=== PATIENT | male | born 1965 | race Caucasian/White ===

== ENCOUNTER 2017-04-04 04:04 | Inpatient (IN) ==
[2017-04-04] MEDS ORDERED: Naloxone 0.4 MG/ML INJ IVP PRN (08:22)
--- NOTE | 2017-04-04 08:35 | Internal Med History&Physical ---
Date of Encounter: 04/08/17 Time of Encounter: 08:34 Assessment and Plan (1) Seizures Status: Acute 51/male Patient of Dr. Butch Francisco Known to have a seizure disorder and presented with worsening tonic-clonic kind of picture. Ultimately the patient had 3 episodes of seizures. Tongue biting was present. Patient was evaluated at Hospital in [place] and then transferred to this hospital for further evaluation. CT brain is of concern regarding in terms of her air-fluid levels. No history of any instrumentation as per family patient has swelling on the back in the inrascapular region. ( ?Lipoma) Assessment: Breakthrough seizure secondary to 1) Non compliance 2) Infective etiology can not be rule out. Plan: Nothing by mouth. Blood culture Intravenous antibiotics (vancomycin/Zosyn/ampicillin/acyclovir) Ativan for seizure Started Keppra, to begin with 1 g as a loading dose. IV fluids. MRI brain. EEG. fall precautions szd precaution. Neurology consult: I spoke personally with Dr. Cantu and discussed the plan. Plan of care discussed with the patient's brother at length. (2) Hypertension Status: Acute At this point we will hold all antihypertensive. Qualifiers: Hypertension type: essential hypertension Qualified Code(s): I10 - Essential (primary) hypertension (3) DVT prophylaxis Status: Acute SCD Internal Medicine - H&P: HPI Chief complaint: Persistent Seizures. Admitted From: Direct Admit Plans for Post Hospital Care: Home History of present illness: PCP: Dr Butch Francisco. Brief PMH: Known to have Seizure disorder ( on Depakote) and has scheduled follow up with Dr Sommers, HTN, HPI: patient have 3 episodes of seizure. First episode of seizure was around 6: 30 yesterday evening when he was driving with his nephew in a car. Patient was on the passenger side and the seizure lasted for more than 3 minutes. Patient' s nephew pulled over her car and was trying to help patient in terms of of the seizure. Patient's nephew took him home and it was noted that patient had another episodes of seizure. At that time it was decided to bring patient to the [facility] for further evaluation. Patient was brought to the [facility] for further evaluation where patient had another episode of seizure and this time basic workup was done which is as follows and patient was transferred to this hospital for further management. It seems that this was a hospital to hospital directly transfer for admission. I examined this patient this morning in the emergency room #29. Patient's nephew and his girlfriend was at bedside along with the patient's brother. Patient is heavily sedated and unable to give any history. Most of the history and all other information was gathered from the patient's family member and the records which were sent to this hospital from [facility] in [facility]. Following his workup from [facility]. WBC: 8.8 sodium: 107 BUN/ creatinine within normal limit. Hemoglobin: 13.1 potassium: 3.8 calcium: 8.7 Hematocrit: 39 chloride: 99 valproic acid: 36 ( 50 to 120) platelet count: 229 EKG: Normal sinus rhythm CT brain: No acute intracranial abnormality. Noted up multiple foci of air within the soft tissues in the right temporal region, about the image the right mandible and and lateral aspect of her right pterygoid plates. There is no history of any instrumentation in the recent past. Reason for acceptance of transfer: Recurrent seizures. Etiology/precipitant factor unknown at this time. Patient needs hospitalization to follow-up on the seizure activity and recurrence. Family history: Noncontributory Internal Medicine - H&P: Meds Atorvastatin Calcium [Lipitor] 20 mg PO HS 04/04/17 [History] Citalopram Hydrobromide [Citalopram HBr] 20 mg PO DAILY 04/04/17 [History] Lisinopril-HCTZ 20-12.5 [Prinzide 20-12.5] 1 tab PO DAILY 04/04/17 [History] Multivit-Min/FA/Lycopen/Lutein [Centrum Silver Men Tablet] 1 each PO DAILY 04/04 [History] Divalproex (12 HR) [Depakote (12 HR)] 500 mg PO BID #60 tablet. 04/06/17 [Rx] Oxycodone HCl 5 mg PO Q6H PRN #15 tablet 04/06/17 [Rx] levETIRAcetam [Keppra] 500 mg PO Q12HR #60 tablet 04/06/17 [Rx] 3 Allergy/AdvReac Type Severity Reaction Status Date / Time No Known Allergies Allergy Verified 04/04/17 06:20 ROS unobtainable: due to mental status All Systems PM: A 10-system review of systems was performed and is negative for pertinent findings except as documented above in the HPI. - Head Head exam: Present: atraumatic, normocephalic - Eye Eye exam: Present: PERRL, conjuntiva pink, sclera anicteric Pupils: Present: PERRL - Neck Neck exam general surgery: Present: supple, trachea midline. Absent: lymphadenopathy - Respiratory Respiratory exam: Present: CTAB. Absent: accessory muscle use, rales, rhonchi, wheezes - Cardiovascular Cardiovascular exam: Present: RRR, +S1, +S2. Absent: diastolic murmur, gallop, rubs, systolic murmur - GI/Abdominal GI/Abdominal exam: Present: normal bowel sounds, soft, no peritoneal signs. Absent: distended, tenderness - Extremities Exam Extremities exam: Present: warm, radial pulses palpable and symmetrical. Absent : calf tenderness, cyanotic, pedal edema - Neurological Exam Neurological exam: Present: CN II-XII intact, oriented X3, no focal deficits. Absent: pronater drift, facial droop, speech deficit - Skin Skin exam: Present: dry, intact Internal Med - H&P Results - Labs CBC & Chem 7: 04/05/17 05:28 04/05/17 05:28
[2017-04-04] MEDS ORDERED: levETIRAcetam 1,000 MG in 0.9 % Sodium Chloride 100 ML IVPB ONE (08:40)
[2017-04-04] MEDS ORDERED: *HR* LORazepam 2 MG/ML VIAL IVP PRN (08:41)
[2017-04-04] MEDS ORDERED: Piperacillin/Tazobactam 3.375 GM in Water for inj. (sterile) 20 ML 20 ML IVP ONE (10:00)
--- NOTE | 2017-04-04 10:11 | Neurology - Consult Note ---
<JoseSebas batista - Last Filed: 04/04/17 10:06> Date of Encounter: 04/04/17 Time of Encounter: 10:06 Assessment and Plan (1) Seizures Current Visit: Yes Status: Acute patient has been having frequent, regular seizures x2 weeks that have become more frequent. Also having frequent episodes of forgetfulness for about the past [address] head done at [facility]. exact etiology unclear at this time but likely multifactorial secondary to non compliance with medication with frequent forgetfulness Also must consider metabolic vs. infectious causes. Plan: B12, folate, MMA, RPR, MMA, TSH, thyroid cascade pending EEG pending MRI brain pending continue fall and seizure precautions, with PRN benzodiazepine. infection prophylaxis per primary team. We will later evaluate whether or not lumbar puncture is indicated. History of Present Illness Chief complaint: seizures HPI: Mr. Ridley is a 51 year old male with PMhx of seizure disorder, HTN. Patient interviewed at bedside, and his brother was present at bedside as well. Patient states that for about the past two weeks, he has been having one seizure every couple days. These episodes last a short amount of time, and then stop. He also states that his seizures have been becoming more frequent. Yesterday, he had two seizures that were prolonged before going to [facility], where he had another seizure. Patient has been having episodes of forgetfulness for about the past five years. He cannot remember simple things, such as watching a certain movie, and his short term memory has significantly declined. He also states that he does frequently forget to take his depakote at home, and this is due to his frequent forgetfulness that has been getting worse. He lives with his brother, and his brother usually reminds him to take his medication, but he still forgets. Patient is very lethargic upon interview. He reports a headache in the back part of his head. He denies nasuea, vomiting, diarrhea, fever, chest pain, shortness of breath. He does report chills. He reports low back pain and left shoulder pain. He denies any further complaints today. Medications and Allergies Atorvastatin Calcium [Lipitor] 20 mg PO HS 04/04/17 [History] Citalopram Hydrobromide [Citalopram HBr] 20 mg PO DAILY 04/04/17 [History] Divalproex (12 HR) [Depakote (12 HR)] 500 mg PO BID 04/04/17 [History] Lisinopril-HCTZ 20-12.5 [Prinzide 20-12.5] 1 tab PO DAILY 04/04/17 [History] Multivit-Min/FA/Lycopen/Lutein [Centrum Silver Men Tablet] 1 each PO DAILY 04/04 [History] 3 Allergy/AdvReac Type Severity Reaction Status Date / Time No Known Allergies Allergy Verified 04/04/17 06:20 All Systems: A 10-system review of systems was performed and is negative for pertinent findings except as documented above in the HPI. - Constitutional Constitutional ROS IM: as per HPI Physical Examination - Vital Signs Vital Signs: Initial Vital Signs Pulse Ox 99 04/04/17 08:37 - Exam Exam: alert and oriented x3, very lethargic, no acute distress. - Constitutional General appearance: comfortable - Neurologic Sensorimotor examination: intact, other (decreased sensation to left side of face) Motor examination - right side: 3/5: deltoids, biceps, triceps, wrist flexion, wrist extension, circular saw edge fuser, hip flexors Motor examination - left side: 3/5: deltoids, biceps, triceps, wrist flexion, wrist extension, hip flexors, circular saw edge fuser Detailed sensory examination: intact Reflexes: Brachioradialis: 1+, Patella: 1+, Achilles: 1+ Mental Status Examination: awake, alert, oriented to person, oriented to place, oriented to time, follows commands appropriately, answers questions appropriately, no aphasia, lethargic Cranial nerve examination: PERRL, EOMI, visual estrada intact Consult Discharge Plan - Plan Referrals: Butch Francisco MD [Primary Care Provider] - <Jeremie Cantu - Last Filed: 04/04/17 17:14> Date of Encounter: 04/04/17 Time of Encounter: 17:06 Assessment and Plan (1) Seizures Current Visit: Yes Status: Acute Very atypical case here. At this point it is not likely that this gentleman has a central nervous system infectious process. I would recommend discontinuing his antibiotics. I do not feel that lumbar puncture is indicated. MRI scan of the brain was normal, EEG was normal as well. I would not expect an normal EEG in an individual is been having 2 or 3 seizures a day for 2 weeks. His valproate level however was subtherapeutic. He gives a long convoluted explanation as to why he cannot take his valproate in the evenings as directed. He told me that he intends to see a neurologist at [facility] sometime in April. He has been loaded on levetiracetam. I would recommend discharging him on levetiracetam 500 mg twice a day. Discontinue the valproate. I would encourage him to follow up with the neurologist at [place]. We will do a follow-up visit in the morning. History of Present Illness HPI: Mr. Ridley is a 51 year old male who was seen and examined for neurologic consultation due to several recent episode of "seizures" and concern of a possible central nervous system infectious process. CT scan completed at [place] reported possible pneumocranium. However MRI scan of the brain completed here at [facility] was essentially normal. Patient at this time does not have a headache he is not febrile does not have been any nuchal rigidity. White count is normal. The likelihood of a [employer] infection is very low. Patient is also previously been seen by my associate Dr. Osborn back in 2011. Dr. Scott felt to likely that this gentleman who had been experiencing nonepileptic seizures. I did repeat his EEG and it was absolutely completely normal. I also find in his history PTSD. He gives a very convoluted history. He is tangential. He also seems to be a bit lethargic perhaps from the Ativan he received in the ED. The upper level was checked and was subtherapeutic at 36. He gives a long explanation as to why he is not able to take his medication as directed. All Systems: A 10-system review of systems was performed and is negative for pertinent findings except as documented above in the HPI. Review of Systems: 10 point review of systems is consistent with a history of present illness and is otherwise negative. Physical Examination - Vital Signs Vital Signs: Initial Vital Signs Pulse Ox 99 04/04/17 08:37 - Exam Exam: at this time patient is a bit somnolent, but remains awake throughout the duration of our encounter. He is not encephalopathic. - Neurologic Detailed motor examination: full strength in all major muscle groups Motor examination - right side: 5/5: deltoids, biceps, triceps, wrist flexion, wrist extension, circular saw edge fuser, hip flexors, tibialis Anterior, quadriceps, toe extension (EHL), plantarflexion Motor examination - left side: 07/29: deltoids, biceps, triceps, wrist flexion, wrist extension, hip flexors, circular saw edge fuser, quadriceps, tibialis Anterior, toe extension (EHL) Mental Status Examination: awake, alert, oriented to person, oriented to place, oriented to time, follows commands appropriately, answers questions appropriately, no agnosia, no aphasia, no aproxia, drowsy Cranial nerve examination: PERRL, EOMI, visual estrada intact, corneal reflexes brisk symmetrically, sensory to face intact, mastication intact, no facial asymmetry is present, no dysarthria, hearing is intact symmetrically, soft palate elevates bilaterally upon phonation, gag reflex intact, flexes SCM and trapezius muscles symmetrically with full power, tongue protrudes midline, no atrophy or facial fasiculations present Results - Laboratory Findings CBC and BMP: 04/04/17 10:32 04/04/17 10:32 Abnormal lab findings: Abnormal lab results Carbon Dioxide 31 mEq/L (23-29) H 04/04/17 10:32 Calcium 8.3 mg/dL (8.6-10.3) L 04/04/17 10:32 Serum Total Protein 6.3 g/dL (6.4-8.9) L 04/04/17 10:32
[2017-04-04 10:46] LABS: Basophils # 0.1 K/mcL (0.0-0.2); Basophils % 0.8 %; Eosinophils # 0.4 K/mcL (0.0-0.6); Eosinophils % 4.7 %; Hematocrit 42.3 % (37.5-50.1); Hemoglobin 13.7 g/dL (12.9-16.9); Immature Granulocytes % 0.1 % (0-4); Immature Platelets 2.6 % (1.1-6.1); Lymphocytes # 2.3 K/mcL (0.6-4.6); Lymphocytes % 28.7 %; Mean Corpuscular HGB Conc 32.4 g/dL (31.6-35.5); Mean Corpuscular Hemoglobin 31.2 pg (28.0-33.3); Mean Corpuscular Volume 96.4 fL (83.0-100.0); Mean Platelet Volume 9.7 fL (9.4-12.4); Monocytes # 0.6 K/mcL (0.0-1.3); Monocytes % 7.1 %; Neutrophils # 4.7 K/mcL (1.6-8.9); Platelet Count 230 K/mcL (140-400); Red Blood Count 4.39 M/mcL (4.19-5.50); Red Cell Distribution Width 13.1 % (11.5-14.5); Segmented Neutrophils % 58.6 %
[2017-04-04 10:53] LABS: INR 1.1; Prothrombin Time 11.3 Seconds (9.4-12.1)
[2017-04-04 10:56] LABS: Activated Partial Thrombo Time 33.1 Seconds (26.0-36.0)
[2017-04-04] MEDS: *HR* Morphine 2 MG/ML SYRINGE IVP PRN ×3 (11:10→21:22)
[2017-04-04] MEDS: 0.9 % Sodium Chloride 1,000 ML IVC SCH ×2 (12:15→23:20)
[2017-04-04] MEDS: Ampicillin 2 GM in 0.9 % Sodium Chloride Mini Bag 100 ML IVPB SCH ×2 (12:17→21:15)
[2017-04-04] MEDS: Vancomycin 1,500 MG in D5% in Water 250 ML IVPB SCH ×2 (12:18→23:00)
[2017-04-04] MEDS: Levofloxacin 750 MG/150 ML 750 MG/150 ML BAG IVPB SCH (12:24)
[2017-04-04 12:27] LABS: Alanine Aminotransferase 22 Units/L (7-52); Albumin 3.9 g/dL (3.5-5.7); Albumin/Globulin Ratio 1.6 (1.1-2.2); Alkaline Phosphatase 54 Units/L (34-104); Aspartate Amino Transferase 21 Units/L (13-39); BUN/Creatinine Ratio 17 (6-26); Bilirubin,Total 0.5 mg/dL (0.3-1.0); Blood Urea Nitrogen 17 mg/dL (6-20); Calcium 8.3 mg/dL (8.6-10.3); Carbon Dioxide 31 mEq/L (23-29); Chloride 106 mEq/L (98-107); Globulin 2.4 g/dL (2.4-3.5); Glucose 90 mg/dL (70-105); Osmolality,Calculated 293 (280-300); Potassium 3.9 mEq/L (3.5-5.1); Sodium 141 mEq/L (136-145); Total Protein 6.3 g/dL (6.4-8.9); eGFR For African Americans > 60 (> 60); eGFR For Non-African Americans > 60 (> 60)
[2017-04-04] MEDS: Acyclovir 750 MG in D5% in Water 250 ML IVPB SCH (16:48)
[2017-04-04] MEDS: Piperacillin/Tazobactam 3.375 GM/200 ML BAG IVPB SCH ×2 (16:49→21:15)
[2017-04-04] MEDS ORDERED: Vancomycin 1,000 MG in D5% in Water 250 ML IVPB SCH (18:00)
[2017-04-04] MEDS: Nicotine 21 MG PATCH.TD24 TD SCH (21:22)
[2017-04-05] MEDS: Ampicillin 2 GM in 0.9 % Sodium Chloride Mini Bag 100 ML IVPB SCH ×4 (00:44→17:15)
[2017-04-05] MEDS: Acyclovir 750 MG in D5% in Water 250 ML IVPB SCH ×3 (01:17→16:13)
[2017-04-05] MEDS: *HR* Morphine 2 MG/ML SYRINGE IVP PRN ×5 (01:22→20:36)
[2017-04-05] MEDS: Piperacillin/Tazobactam 3.375 GM/200 ML BAG IVPB SCH ×3 (02:22→18:37)
[2017-04-05 05:49] LABS: Basophils # 0.1 K/mcL (0.0-0.2); Basophils % 0.7 %; Eosinophils # 0.4 K/mcL (0.0-0.6); Eosinophils % 4.4 %; Hematocrit 37.1 % (37.5-50.1); Hemoglobin 12.6 g/dL (12.9-16.9); Immature Granulocytes % 0.5 % (0-4); Lymphocytes # 1.8 K/mcL (0.6-4.6); Lymphocytes % 20.5 %; Mean Corpuscular Hemoglobin 31.5 pg (28.0-33.3); Mean Corpuscular Volume 92.8 fL (83.0-100.0); Mean Platelet Volume 9.6 fL (9.4-12.4); Monocytes # 0.7 K/mcL (0.0-1.3); Monocytes % 7.6 %; Neutrophils # 5.8 K/mcL (1.6-8.9); Platelet Count 213 K/mcL (140-400); Red Cell Distribution Width 12.7 % (11.5-14.5); Segmented Neutrophils % 66.3 %
[2017-04-05 05:58] LABS: INR 1.1; Prothrombin Time 12.1 Seconds (9.4-12.1)
[2017-04-05 06:01] LABS: Activated Partial Thrombo Time 32.8 Seconds (26.0-36.0)
[2017-04-05 06:06] LABS: Alanine Aminotransferase 20 Units/L (7-52); Albumin 3.4 g/dL (3.5-5.7); Albumin/Globulin Ratio 1.4 (1.1-2.2); Alkaline Phosphatase 50 Units/L (34-104); Aspartate Amino Transferase 19 Units/L (13-39); BUN/Creatinine Ratio 14 (6-26); Bilirubin,Total 0.4 mg/dL (0.3-1.0); Blood Urea Nitrogen 14 mg/dL (6-20); Calcium 8.6 mg/dL (8.6-10.3); Carbon Dioxide 33 mEq/L (23-29); Chloride 107 mEq/L (98-107); Chol/HDL Ratio 3.6 (0-4.9); Cholesterol 123 mg/dL (< 200); Globulin 2.4 g/dL (2.4-3.5); Glucose 90 mg/dL (70-105); HDL Cholesterol 34 mg/dL (40-59); LDL Cholesterol,Calculated 55 mg/dL (0-99); Magnesium 1.9 mg/dL (1.6-2.6); Osmolality,Calculated 292 (280-300); Phosphorous 3.3 mg/dL (2.7-4.5); Potassium 3.9 mEq/L (3.5-5.1); Sodium 141 mEq/L (136-145); Total Protein 5.8 g/dL (6.4-8.9); Triglycerides 170 mg/dL (< 150); eGFR For African Americans > 60 (> 60); eGFR For Non-African Americans > 60 (> 60)
--- NOTE | 2017-04-05 07:28 | EEG/EMG/Oth Biometrics Report ---
EEG Procedure Report Date of procedure: 04/05/17 EEG Procedure: Routine EEG Procedure Note: This is a report of a 21 channel bipolar and referential montage EEG. The posterior dominant rhythm consists of 8 Hz moderate voltage alpha frequency. This rhythm attenuates symmetrically with eye opening. Hyperventilation was not performed during the recording. The emergency technician during the recording. Document what was a thought to have been seizure activity. However there was no change in the baseline EEG other than increased myogenic artifact. There was no epileptiform activity identified during the event which lasted about 9 seconds. There was no postictal slowing associated. Periods of drowsiness and stage II sleep identified as reference by dropout of the posterior dominant rhythm and emergence of vertex activity, K complexes, and sleep spindles. Photic stimulation is performed and does not produce a driving response. The EKG reveals normal sinus rhythm at 60 bpm. Impressions: This EEG recording is within normal limits. There is no evidence of epileptiform activity identified during the study. Comment: An event occurred during the recording at the emergency technician documented as "seizure". However there was no epileptiform activity identified during this event. No pre-or postictal slowing identified. This is consistent with a psychogenic nonepileptic seizure. Please correlate clinically.
[2017-04-05] MEDS: Nicotine 21 MG PATCH.TD24 TD SCH (08:03)
--- NOTE | 2017-04-05 08:23 | Neurology Progress Note ---
Date of Encounter: 04/05/17 Time of Encounter: 08:21 Assessment and Plan (1) Seizures Current Visit: Yes Status: Acute (2) Psychogenic nonepileptic seizure Current Visit: Yes Status: Acute As mentioned in my note I believe that we are dealing with psychogenic nonepileptic seizures here. The EEG was normal. There was no evidence of epileptiform activity identified during the study. However the conservation technician witnesses an event that she noted a seizure. I would recommend still discharging this patient on levetiracetam 500 mg twice a day. Some individuals with psychogenic seizures experience complex partial seizures as well. I am recommending simply follow up with his appointment at [place] for neurological assessment and summary been scheduled. You may discharge him at your discretion. Subjective Interval history: Chart was reviewed, patient was seen and examined. No further seizures identified overnight. I did review the EEG which was essentially normal. He did experience an event which the conservation technician reported as "seizure" however there was no change in the cortical rhythms suggestive of seizure. No epileptiform activity was identified. An increase in myogenic artifact however was present. This is suggestive of a nonepileptic event. Otherwise he also admits that he has been under a great deal of stress lately because of his mother's failing health. She has recently been placed in hospice care. He denies any headache this morning. Denies any new neurologic deficits. Objective - Constitutional Vitals: Temp Pulse Resp BP Pulse Ox 97.8 F 72 18 121/71 99 04/05/17 07:08 04/05/17 07:08 04/05/17 07:08 04/05/17 07:08 04/05/17 07:08 - Neurological Exam Sensorimotor examination: Present: intact, other (decreased sensation to left side of face) Motor Examination: Present: full strength in all major muscle groups Motor examination - right side: 5/5: deltoids, biceps, triceps, wrist flexion, wrist extension, extractor and wringer operator, hip flexors, tibialis Anterior, quadriceps, toe extension (EHL), plantarflexion Motor examination - left side: 5/5: deltoids, biceps, triceps, wrist flexion, wrist extension, hip flexors, extractor and wringer operator, quadriceps, tibialis Anterior, toe extension (EHL) Sensation intact: Present: intact Mental Status Examination: Present: awake, alert, oriented to person, oriented to place, oriented to time, follows commands appropriately, answers questions appropriately, no agnosia, no aphasia, no aproxia Cranial nerve examination: Present: PERRL, EOMI, visual estrada intact, corneal reflexes brisk symmetrically, sensory to face intact, mastication intact, no facial asymmetry is present, no dysarthria, hearing is intact symmetrically, soft palate elevates bilaterally upon phonation, gag reflex intact, flexes SCM and trapezius muscles symmetrically with full power, tongue protrudes midline, no atrophy or facial fasiculations present Cerebellar examination: Present: no dysmetria, performs finger to nose and heel to elias symmetrically without ataxia, no gait ataxia Results - Laboratory Findings CBC and BMP: 04/05/17 05:28 04/05/17 05:28 Abnormal lab findings: Abnormal lab results RBC 4.00 M/mcL (4.19-5.50) L 04/05/17 05:28 Hgb 12.6 g/dL (12.9-16.9) L 04/05/17 05:28 Hct 37.1 % (37.5-50.1) L 04/05/17 05:28 Carbon Dioxide 33 mEq/L (23-29) H 04/05/17 05:28 B-Natriuretic Peptide 102 pg/mL (Less than 100) H 04/05/17 05:28 Serum Total Protein 5.8 g/dL (6.4-8.9) L 04/05/17 05:28 Albumin 3.4 g/dL (3.5-5.7) L 04/05/17 05:28 Triglycerides 170 mg/dL (< 150) H 04/05/17 05:28 VLDL Cholesterol, Calc 34 mg/dL (< 31) H 04/05/17 05:28 HDL Cholesterol 34 mg/dL (40-59) L 04/05/17 05:28 Consult Discharge Plan - Plan Referrals: Butch Francisco MD [Primary Care Provider] -
[2017-04-05] MEDS ORDERED: Aminoglycoside Consult 1 EACH MC ONE (08:34)
[2017-04-05] MEDS: Levofloxacin 750 MG/150 ML 750 MG/150 ML BAG IVPB SCH (09:12)
[2017-04-05] MEDS: Vancomycin 1,500 MG in D5% in Water 250 ML IVPB SCH (11:52)
--- NOTE | 2017-04-05 18:10 | Internal Med Progress Note ---
Date of Encounter: 04/05/17 Time of Encounter: 18:08 - Assessment and plan (1) Psychogenic nonepileptic seizure Current Visit: Yes Status: Acute Assessment and plan: EEG is normal, MRI of the brain without abnormalities Neurology recommending to continue Keppra, as some individuals with psychogenic seizures experience complex partial seizures as well. Seizure precautions Discontinue antibiotics, no signs of meningitis CT brain: No acute intracranial abnormality. Noted up multiple foci of air within the soft tissues in the right temporal region, about the image the right mandible and and lateral aspect of her right pterygoid plates. There is no history of any instrumentation in the recent past. (2) Hyperlipidemia Current Visit: Yes Status: Acute Assessment and plan: Continue atorvastatin Qualifiers: Hyperlipidemia type: pure hypercholesterolemia Qualified Code(s): E78.00 - Pure hypercholesterolemia, unspecified; E78.0 - Pure hypercholesterolemia (3) Seizures Current Visit: Yes Status: Acute Assessment and plan: Continue Depakote (4) Hypertension Current Visit: Yes Status: Acute Assessment and plan: Continue lisinopril and hydrochlorothiazide Qualifiers: Hypertension type: essential hypertension Qualified Code(s): I10 - Essential (primary) hypertension (5) Sebaceous cyst Current Visit: Yes Status: Acute Assessment and plan: Can follow up as an outpatient, might require draining/excision - Subjective Interval history: Denies any photophobia, no neck rigidity, no further seizure episodes, complains of pain on the right upper back from a possible sebaceous cyst, no chest pain or shortness of breath, no dysuria - Constitutional Vitals: Temp Pulse Resp BP Pulse Ox 98.0 F 57 18 131/82 94 04/05/17 15:09 04/05/17 15:09 04/05/17 15:09 04/05/17 15:04/05/17 15:09 General appearance: Present: A&O X 3 Exam: No neck rigidity - Head Head exam: Present: atraumatic, normocephalic - Eye Eye exam: Present: PERRL, conjuntiva pink, sclera anicteric Pupils: Present: PERRL - Neck Neck exam general surgery: Present: supple, trachea midline. Absent: lymphadenopathy - Respiratory Respiratory exam: Present: CTAB. Absent: accessory muscle use, rales, rhonchi, wheezes - Cardiovascular Cardiovascular exam: Present: RRR, +S1, +S2. Absent: diastolic murmur, gallop, rubs, systolic murmur Additional comments: right upper back from a possible sebaceous cyst - GI/Abdominal GI/Abdominal exam: Present: normal bowel sounds, soft, no peritoneal signs. Absent: distended, tenderness - Extremities Exam Extremities exam: Present: warm, radial pulses palpable and symmetrical. Absent : calf tenderness, cyanotic, pedal edema - Neurological Exam Neurological exam: Present: CN II-XII intact, oriented X3, no focal deficits. Absent: pronater drift, facial droop, speech deficit - Skin Skin exam: Present: dry, intact Internal Medicine: Result - Labs CBC & Chem 7: 04/05/17 05:28 04/05/17 05:28 Labs: Short CBC 04/05/17 Range/Units 05:28 WBC 8.7 (4.3-11.1) K/mcL Hgb 12.6 L (12.9-16.9) g/dL Hct 37.1 L (37.5-50.1) % Plt Count 213 (140-400) K/mcL Neutrophils # 5.8 (1.6-8.9) K/mcL BMP 04/05/17 05:28 Sodium 141 Potassium 3.9 Chloride 107 Carbon Dioxide 33 H BUN 14 Creatinine 0.99 Glucose 90 Calcium 8.6 Cardiac Enzymes 04/04/17 Range/Units 20:29 Troponin I < 0.03 (< 0.04) ng/mL Liver Function 04/05/17 Range/Units 05:28 Total Bilirubin 0.4 (0.3-1.0) mg/dL AST 19 (13-39) Units/L ALT 20 (7-52) Units/L Alkaline Phosphatase 50 (34-104) Units/L Albumin 3.4 L (3.5-5.7) g/dL - ABG Interpretation ABG results: PT/INR, D-dimer PT 12.1 Seconds (9.4-12.1) 04/05/17 05:28 - Impressions Impressions Brain MRI 04/04/17 08:28 IMPRESSION: Motion degraded study. Unremarkable MRI of brain. No acute intracranial abnormality. D/ / 04/04/2017 12:42:16 Leon Riojas MD / [email or web address] Interpreting Provider: Leon Riojas MD Consult Discharge Plan - Plan Referrals: Butch Francisco MD [Primary Care Provider] -
[2017-04-05] MEDS: levETIRAcetam 250 MG TABLET PO SCH (18:42)
[2017-04-05] MEDS: Divalproex (12 HR) 500 MG TABLET PO SCH (20:36)
[2017-04-06] MEDS: *HR* Morphine 2 MG/ML SYRINGE IVP PRN (04:18)
[2017-04-06] MEDS: levETIRAcetam 250 MG TABLET PO SCH (05:13)
[2017-04-06 07:04] VITALS: BP 116/75
--- NOTE | 2017-04-06 08:11 | Discharge Summary ---
Date of Encounter: 04/06/17 Time of Encounter: 08:08 - Discharge Diagnosis (1) Psychogenic nonepileptic seizure Priority: Primary Status: Acute (2) Hyperlipidemia Priority: Secondary Status: Acute Qualifiers: Hyperlipidemia type: pure hypercholesterolemia Qualified Code(s): E78.00 - Pure hypercholesterolemia, unspecified; E78.0 - Pure hypercholesterolemia (3) Seizures Priority: Secondary Status: Acute (4) Hypertension Priority: Secondary Status: Acute Qualifiers: Hypertension type: essential hypertension Qualified Code(s): I10 - Essential (primary) hypertension (5) Sebaceous cyst Priority: Secondary Status: Acute Comments: Can follow up as an outpatient, might require draining/excision - Discharge Medications Prescriptions: levETIRAcetam [Keppra] 500 mg PO Q12HR #60 tablet Divalproex (12 HR) [Depakote (12 HR)] 500 mg PO BID #60 tablet. Oxycodone HCl 5 mg PO Q6H PRN #15 tablet PRN Reason: pain Home Medications: Atorvastatin Calcium [Lipitor] 20 mg PO HS 04/04/17 [History] Citalopram Hydrobromide [Citalopram HBr] 20 mg PO DAILY 04/04/17 [History] Lisinopril-HCTZ 20-12.5 [Prinzide 20-12.5] 1 tab PO DAILY 04/04/17 [History] Multivit-Min/FA/Lycopen/Lutein [Centrum Silver Men Tablet] 1 each PO DAILY 04/04 [History] Divalproex (12 HR) [Depakote (12 HR)] 500 mg PO BID #60 tablet. 04/06/17 [Rx] Oxycodone HCl 5 mg PO Q6H PRN #15 tablet 04/06/17 [Rx] levETIRAcetam [Keppra] 500 mg PO Q12HR #60 tablet 04/06/17 [Rx] Allergies/Adverse Reactions: 3 Allergy/AdvReac Type Severity Reaction Status Date / Time No Known Allergies Allergy Verified 04/04/17 06:20 Procedures/tests Complete & Pending: Procedures Performed prior 72 hours Category Date Time Status MR head/brain wo con [MR] Routine MRI 04/04/17 08:28 Completed Date of admission: 04/04/17 10:13 Primary care physician: Butch Francisco MD Consults: 04/04/17 08:26 Consult to Occupational Therapy [CONS] Routine Comment: Evaluate, develop and implement POC Reason for Consult: Persistent seizures Consult to Physical Therapy [CONS] Routine Comment: Evaluate, develop and implement POC Reason for Consult: Persistent seizures Consult to Physician [CONS] Routine Consulting Provider: Jeremie Cantu Reason for Consult: Persistent seizures Call Completed: Yes Consult to Drywall Professional [CONS] Routine Reason for SW Consult: Persistent seizures Consult to Speech Therapy [CONS] Routine Comment: Evaluate, develop and implement POC Reason for Consult: Persistent seizures Call Completed: No 04/04/17 09:57 Consult to Interpret Exam [CONS] Routine Consulting Provider: Jeremie Cantu Consult to Interpret Exam: Interpret EEG - Patient Status Disposition: Home, Self-Care Condition: Good Overall status at discharge: patient is back to baseline - Discharge Instructions Follow Up With: Butch Francisco MD [Primary Care Provider] - Additional Instructions: Follow-up with primary care physician within the next 7 days. Follow up with neurology within the next 2 weeks. Continue Keppra and Depakote. He quit smoking - Diet and Activity Activity: increase activity as tolerated Diet: low fat, low cholesterol Hospital course: Mr. Ridley is a 51 year old male with PMhx of seizure disorder, HTN. Patient stated that for about the past two weeks, he has been having one seizure every couple days. These episodes last a short amount of time, and then stop. He also stated that his seizures have been becoming more frequent. He had two seizures that were prolonged before going to [facility], where he had another seizure. Patient has been having episodes of forgetfulness for about the past five years. RN was made aware that the patient was "binging on crack" lately. CT brain: No acute intracranial abnormality. Noted up multiple foci of air within the soft tissues in the right temporal region, about the image the right mandible and and lateral aspect of her right pterygoid plates. There is no history of any instrumentation in the recent past. The patient was started on several antibiotics including Levaquin, Zosyn, was also started on antibiotics for possible meningitis such as vancomycin IV, ampicillin and acyclovir. He will did not complain of any neck rigidity for which all of these were discontinued. He is stable to be discharged as noninfectious have been identified EEG was normal, MRI of the brain was done and showed no abnormalities Neurology recommending to continue Keppra, as some individuals with psychogenic seizures experience complex partial seizures as well. Time spent discussing smoking cessation with patient: 3 to 10 minutes - Time Spent with Patient Total time spent providing and/or coordinating discharge services: Greater than 30 minutes (40 min) - Constitutional Vitals: Temp Pulse Resp BP Pulse Ox 98.4 F 62 16 116/75 96 04/06/17 07:01 04/06/17 07:01 04/06/17 07:01 04/06/17 07:01 04/06/17 04:00 General appearance: Present: A&O X 3 Exam: No neck rigidity - Head Head exam: Present: atraumatic, normocephalic - Eye Eye exam: Present: PERRL, conjuntiva pink, sclera anicteric Pupils: Present: PERRL - Neck Neck exam general surgery: Present: supple, trachea midline. Absent: lymphadenopathy - Respiratory Respiratory exam: Present: CTAB. Absent: accessory muscle use, rales, rhonchi, wheezes - Cardiovascular Cardiovascular exam: Present: RRR, +S1, +S2. Absent: diastolic murmur, gallop, rubs, systolic murmur Additional comments: right upper back from a possible sebaceous cyst - GI/Abdominal GI/Abdominal exam: Present: normal bowel sounds, soft, no peritoneal signs. Absent: distended, tenderness - Extremities Exam Extremities exam: Present: warm, radial pulses palpable and symmetrical. Absent : calf tenderness, cyanotic, pedal edema - Neurological Exam Neurological exam: Present: CN II-XII intact, oriented X3, no focal deficits. Absent: pronater drift, facial droop, speech deficit - Skin Skin exam: Present: dry, intact
[2017-04-06] MEDS: Divalproex (12 HR) 500 MG TABLET PO SCH (08:28)
[2017-04-06] MEDS: Nicotine 21 MG PATCH.TD24 TD SCH (08:28)
[2017-04-06] MEDS ORDERED: Lisinopril-HCTZ 20-12.5mg TABLET PO SCH (09:00)
== END 2017-04-06 10:17 | disposition home or self-care (01) | DRG 101 ==
LOC: 3BNU → SUATTDRO 10:13 → 3BNU 13:44
PROVIDERS: ADMIT Internal Medicine; ATTEND Internal Medicine

== ENCOUNTER 2021-05-25 04:12 | Observation (INO) ==
[2021-05-25] MEDS ORDERED: Isovue-370 500 ML BOTTLE IVP ONE (04:18)
[2021-05-25 04:57] LABS: Basophils # 0.1 K/mcL (0.0-0.2); Basophils % 1.1 %; Eosinophils # 0.2 K/mcL (0.0-0.6); Eosinophils % 2.8 %; Hematocrit 37.3 % (37.5-50.1); Hemoglobin 12.8 g/dL (12.9-16.9); Immature Granulocytes % 0.3 % (0-4); Lymphocytes # 1.8 K/mcL (0.6-4.6); Lymphocytes % 23.8 %; Mean Corpuscular HGB Conc 34.3 g/dL (31.6-35.5); Mean Corpuscular Hemoglobin 32.1 pg (28.0-33.3); Mean Corpuscular Volume 93.5 fL (83.0-100.0); Mean Platelet Volume 9.5 fL (9.4-12.4); Monocytes # 0.7 K/mcL (0.0-1.3); Monocytes % 9.3 %; Neutrophils # 4.8 K/mcL (1.6-8.9); Platelet Count 236 K/mcL (140-400); Red Blood Count 3.99 M/mcL (4.19-5.50); Red Cell Distribution Width 12.4 % (11.5-14.5); Segmented Neutrophils % 62.7 %; White Blood Count 7.6 K/mcL (4.3-11.1)
[2021-05-25 05:11] LABS: Alanine Aminotransferase 18 Units/L (7-52); Albumin 3.7 g/dL (3.5-5.7); Albumin/Globulin Ratio 1.5 (1.1-2.2); Alkaline Phosphatase 47 Units/L (34-104); Aspartate Amino Transferase 17 Units/L (13-39); BUN/Creatinine Ratio 26 (6-26); Bilirubin,Total 0.5 mg/dL (0.3-1.0); Blood Urea Nitrogen 22 mg/dL (6-20); Calcium 8.8 mg/dL (8.6-10.3); Carbon Dioxide 30 mEq/L (23-29); Chloride 103 mEq/L (98-107); Ethanol < 10 mg/dL (Less than 10); Globulin 2.5 g/dL (2.4-3.5); Glucose 139 mg/dL (70-105); Magnesium 1.8 mg/dL (1.6-2.6); Osmolality,Calculated 290 (280-300); Potassium 3.2 mEq/L (3.5-5.1); Sodium 137 mEq/L (136-145); Total Protein 6.2 g/dL (6.4-8.9); eGFR For African Americans > 60 (> 60); eGFR For Non-African Americans > 60 (> 60)
[2021-05-25] MEDS ORDERED: Aspirin 81 MG TAB.CHEW PO ONE (06:46)
[2021-05-25] MEDS ORDERED: Perflutren Lipid Microsphere 1.3 ML in 0.9 % Sodium Chloride 8.7 ML IVP PRN (07:41)
[2021-05-25] MEDS ORDERED: Acetaminophen 325 MG TABLET PO PRN (07:44)
[2021-05-25] MEDS ORDERED: Naloxone 0.4 MG/ML INJ IVP PRN (07:44)
[2021-05-25] MEDS ORDERED: *HR* LORazepam 2 MG/ML VIAL IVP PRN (07:46)
[2021-05-25] MEDS ORDERED: levETIRAcetam 250 MG TABLET PO SCH (10:00)
[2021-05-25 10:02] LABS: Prothrombin Time 11.6 Seconds (9.4-12.1)
[2021-05-25] MEDS: Divalproex (12 HR) 500 MG TABLET PO SCH ×2 (10:51→19:54)
[2021-05-25] MEDS: Aspirin Enteric Coated 81 MG Tablet PO SCH (10:51)
[2021-05-25] MEDS: Nicotine 21 MG PATCH.TD24 TD SCH (10:52)
[2021-05-25] MEDS: levETIRAcetam 250 MG TABLET PO SCH ×2 (10:52→18:02)
[2021-05-25 17:43] LABS: Bilirubin,Urine Negative (Negative); Blood,Urine Negative (Negative); Clarity,Urine Clear (Clear); Color,Urine Light-Yellow (Yellow); Glucose,Urine (UA) Normal (Normal); Ketones,Urine Negative (Negative); Leukocyte Esterase,Urine Negative (Negative); Nitrite,Urine Negative (Negative); PH,Urine 6.5 pH Units (5.0-8.0); Protein,Urine Trace mg/dL (Neg-Trace); Specific Gravity,Urine > 1.030 (1.010-1.025)
[2021-05-25 17:54] LABS: Amphetamine Screen,Urine Positive ng/mL (Cutoff=1000); Barbiturate Screen,Urine Negative ng/mL (Cutoff=200); Benzodiazepines Screen,Urine Positive ng/mL (Cutoff=200); Cannabinoid Screen,Urine Negative ng/mL (Cutoff = 50); Cocaine Screen,Urine Negative ng/mL (Cutoff= 300); Opiate Screen,Urine Negative ng/mL (Cutoff=300); Phencyclidine Screen,Urine Negative ng/mL (Cutoff=25)
[2021-05-25] MEDS: Gabapentin 300 MG CAPSULE PO SCH (19:53)
[2021-05-25] MEDS ORDERED: Divalproex (12 HR) 500 MG TABLET PO SCH (21:00)
[2021-05-26 02:58] LABS: Hematocrit 41.9 % (37.5-50.1); Mean Corpuscular HGB Conc 33.4 g/dL (31.6-35.5); Mean Corpuscular Volume 95.7 fL (83.0-100.0); Mean Platelet Volume 9.8 fL (9.4-12.4); Platelet Count 251 K/mcL (140-400); Red Blood Count 4.38 M/mcL (4.19-5.50); Red Cell Distribution Width 12.4 % (11.5-14.5)
[2021-05-26 03:18] LABS: Alanine Aminotransferase 17 Units/L (7-52); Albumin/Globulin Ratio 1.5 (1.1-2.2); Alkaline Phosphatase 51 Units/L (34-104); Aspartate Amino Transferase 16 Units/L (13-39); BUN/Creatinine Ratio 20 (6-26); Bilirubin,Total 0.4 mg/dL (0.3-1.0); Blood Urea Nitrogen 17 mg/dL (6-20); Calcium 8.9 mg/dL (8.6-10.3); Carbon Dioxide 28 mEq/L (23-29); Chloride 103 mEq/L (98-107); Chol/HDL Ratio 3.3 (0-4.9); Cholesterol 148 mg/dL (< 200); Globulin 2.6 g/dL (2.4-3.5); Glucose 120 mg/dL (70-105); HDL Cholesterol 45 mg/dL (40-59); LDL Cholesterol,Calculated 57 mg/dL (< 100); Osmolality,Calculated 291 (280-300); Potassium 3.5 mEq/L (3.5-5.1); Sodium 139 mEq/L (136-145); Total Protein 6.6 g/dL (6.4-8.9); Triglycerides 232 mg/dL (< 150); eGFR For African Americans > 60 (> 60); eGFR For Non-African Americans > 60 (> 60)
[2021-05-26 03:42] LABS: Estimated Average Glucose 114 mg/dl; Hemoglobin A1C 5.6 %
[2021-05-26] MEDS: levETIRAcetam 250 MG TABLET PO SCH (05:28)
[2021-05-26 07:11] VITALS: BP 137/78; PULSE 92; TEMP 97.7; O2SAT 97
[2021-05-26] MEDS: Aspirin Enteric Coated 81 MG Tablet PO SCH (07:44)
[2021-05-26] MEDS: Divalproex (12 HR) 500 MG TABLET PO SCH (07:44)
[2021-05-26] MEDS: Nicotine 21 MG PATCH.TD24 TD SCH (07:44)
[2021-05-26] MEDS: Gabapentin 300 MG CAPSULE PO SCH (07:44)
== END 2021-05-26 12:49 | disposition home or self-care (01) ==
LOC: SUATTDRO → 3BNU 04:12 → EMEROOARM 04:12 → 3BNU 07:50
PROVIDERS: ADMIT Family Medicine; ATTEND Family Medicine